=== PATIENT | male | born 1960 | race Caucasian/White ===

== ENCOUNTER 2021-01-19 11:21 | Emergency (ER) | payer MEDICARE, SELFPAY ==
--- NOTE | ~2021-01-19 | XR_ITS ---
EXAMINATION: XR shoulder LT min 2V INDICATION: Left shoulder pain TECHNIQUE: Two views of the left shoulder are submitted. COMPARISON: None FINDINGS: Normal alignment. No fracture. There is moderate osteoarthritis of the acromioclavicular an d glenohumeral joints. Soft tissues are unremarkable. IMPRESSION: 1. Osteoarthritis without acute osseous abnormality. Reviewed, dictated and finalized at location A.
--- NOTE | ~2021-01-19 | XR_ITS ---
EXAMINATION: XR elbow LT min 3V DATE: 01/19/2021 12:37 INDICATION: Left elbow pain TECHNIQUE: Three views of the left elbow were obtained. COMPARISON: None. FINDINGS: Nonstandard views of the left elbow were obtained due to patient pain. There is soft tissue swelling of the elbow. A subtle lucency is suggested in the radial head. 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 No definite joint effusion is identified. IMPRESSION: 1. Possible nondisplaced fracture of the radial head difficult to characterize due to nonstandard vie ws related to patient pain and positioning. Reviewed, dictated and finalized at location A. IMPRESSION: 1. Possible nondisplaced fracture of the radial head difficult to characterize due to nonstandard views related to patient pain and positioning.
[2021-01-19 11:35] VITALS: BP 142/77; PULSE 61; RESP 16; TEMP 36.8; O2SAT 99
--- NOTE | 2021-01-19 12:01 | ED.GENADULT ---
HPI - General Adult General Chief complaint: Extremity Injury, Upper Stated complaint: left wrist pain Time Seen by Provider: 01/19/21 12:01 Source: patient and RN notes reviewed Mode of arrival: ambulatory Limitations: no limitations History of Present Illness HPI narrative: 60-year-old male presents with complaints of LT shoulder, elbow, and ring (4th) finger pain for the past 16 hours. Antonio reports falling onto ceramic tile on 01/19/2021 causing injury to LT ring (4th) finger, shoulder, and elbow approximately 20:00. History of 3 consecutive rotator cuff repairs to the left elbow surgery. OxyContin was taken last today without relief. No radiation of pain. Exacerbation factor consists of movement. No relieving factors. Dominant hand is the RIGHT HAND. Denies hitting head with fall. Denies loss of consciousness, dizziness, or seizure activity. Remains active. The patient reports he has not been diagnosed with COVID-19. The patient reports he received 1 Moderna COVID-19 vaccine and is waiting until his second dose is due. The patient reports he is not waiting for the results of a COVID-19 lab test. The patient reports he does not have fever, chills, weakness, or fatigue. The patient reports she does not have a new or worsening cough or shortness of breath. Denies chest pain. The patient reports he does not have any rhinorrhea, congestion, sore throat, loss of taste and/or smell, nausea, vomiting, abdominal pain, and diarrhea. Tolerating po intake well. The patient reports he is here visiting from [place]. Denies concerns for COVID-19 or exposures. At this time, the patient is not suspected of having COVID-19. Some parts of this dictation were generated by voice recognition software and may contain typographical and/or grammatical inaccuracies. Related Data Home Medications Medication Instructions Recorded Confirmed Orencia 01/19/21 OxyContin 01/19/21 gabapentin 01/19/21 leflunomide 01/19/21 meloxicam 01/19/21 methotrexate 01/19/21 Allergies Allergy/AdvReac Type Severity Reaction Status Date / Time No Known Allergies Allergy Verified 01/19/21 11:41 Review of Systems Review of Systems: Narrative: CONSTITUTIONAL: Denies fever, chills, sweats. EYES: Denies visual changes, redness, discharge. ENT: Denies rhinorrhea, congestion, sore throat, otalgia. CARDIOVASCULAR: Denies chest pain, palpitations, edema. RESPIRATORY: Denies dyspnea, wheezing, cough. GASTROINTESTINAL: Denies abdominal pain, nausea, vomiting, diarrhea. SKIN: Denies rash or itching. MUSCULOSKELETAL: Denies acute back pain or myalgia. Complaints of LT shoulder, elbow, and ring (4th) finger pain. NEUROLOGIC: Denies numbness or focal weakness. PSYCHIATRIC: Denies anxiety or depression. All other systems reviewed & are unremarkable except as noted in HPI and below. [facility] Past Medical History Medical History (Updated 01/27/21 @ 09:09 by PIERCE Sánchez) Rheumatoid arthritis Surgical History Surgical History (Updated 01/19/21 @ 12:16 by PIERCE Sánchez) History of rotator cuff surgery 3 consecutive surgeries on left rotator cuff History of shoulder surgery Bilateral History of surgery on upper extremity Left elbow Family History Family History (Updated 01/19/21 @ 12:16 by PIERCE Sánchez) Father Alive and well Mother Alive and well Social History Social History (Updated 01/19/21 @ 12:17 by PIERCE Sánchez) Smoking status: Never smoker Tobacco type: cigarettes Second hand tobacco smoke exposure: No Alcohol intake: current Substance use: current Substance use type: painkillers Other substance usage details: OxyContin Living arrangements: with family Occupation/Education: retired Gender identity (if verbalized by the patient): Male Sexual Orientation (if Verbalized by the Patient): Straight or Heterosexual Exam Narrative: Exam Narrative: GENERAL: T
[2021-01-19] MEDS: KETOROLAC (*BKC) 60 MG/2 ML VIAL IM (12:11)
[2021-01-19] MEDS: methylPREDNISolone SOD SUCC 125 MG VIAL IM (13:01)
== END 2021-01-19 13:18 | disposition home or self-care (01) ==
PROVIDERS: Emergency Provider Nurse Practitioner Family
DX: S43.402A Unspecified sprain of left shoulder joint, initial encounter (principal); W19.XXXA Unspecified fall, initial encounter; S42.402A Unspecified fracture of lower end of left humerus, initial encounter for closed fracture; M06.9 Rheumatoid arthritis, unspecified
CPT/HCPCS: 29105; 73030; 73080; 96372; 99214; A4565; G0463; J1885; J2930